=== PATIENT | male | born 1940 | race Caucasian/White ===

== ENCOUNTER 2021-03-06 17:09 | Emergency (ER) | payer OTHER ==
[~2021-03-06] VITALS: Ht 175.3 cm; Wt 104.3 kg
[2021-03-06] MEDS ORDERED: TOPROL XL25 MG PO (18:03)
[2021-03-06] MEDS ORDERED: EFFIENT10 MG PO (18:03)
[2021-03-06] MEDS ORDERED: ROPINIROLE HCL2 M1 PO (18:03)
[2021-03-06] MEDS ORDERED: LIPITOR40 MG PO (18:03)
[2021-03-06] MEDS ORDERED: NOVOLOG100 UNIT/M SUBQ (18:04)
[2021-03-06] MEDS ORDERED: GABAPENTIN100 MG PO (18:04)
[2021-03-06] MEDS ORDERED: LISINOPRIL20 MG PO (18:04)
[2021-03-06] MEDS ORDERED: FLOMAX0.4 MG PO (18:04)
[2021-03-06] MEDS ORDERED: LANTUS SUBQ (18:05)
[2021-03-06] MEDS ORDERED: TRULICITY1.5 MG/0.5 INTRADERM (18:05)
[2021-03-06 19:05] LABS: HEMOGLOBIN 14.5 gm/dL (14.0-18.0); MCH 31.8 pg (26.0-34.0); WBC 20.1 thou/uL (4.0-11.0)
[2021-03-06 19:07] LABS: HEMATOCRIT 42.5 % (42.0-52.0); MCHC 34.1 g/dL (28.0-37.0); MCV 93.2 fL (80.0-100.0); RBC 4.56 mil/uL (4.50-6.00); RDW 13.9 % (10.5-14.5)
[2021-03-06 19:10] LABS: ANION GAP 13 mmol/L (7-16); BUN 16 mg/dL (7-18); CALCIUM 9.1 mg/dL (8.5-10.1); CHLORIDE 103 mmol/L (98-107); CO2 22 mmol/L (21-32); CREATININE 1.1 mg/dL (0.7-1.3); GLUCOSE 150 mg/dL (74-106); POTASSIUM 4.4 mmol/L (3.5-5.1); SODIUM 138 mmol/L (136-145)
[2021-03-06 19:18] LABS: ALBUMIN 3.3 g/dL (3.4-5.0); SGOT 23 U/L (15-37); SGPT 39 U/L (16-63); TOTAL BILIRUBIN 0.6 mg/dL (0.2-1.0); TOTAL PROTEIN 7.1 g/dL (6.4-8.2); TROPONIN-I <0.06 ng/mL (<0.06)
[2021-03-06 19:42] LABS: URINE BILIRUBIN NEGATIVE (Negative); URINE BLOOD NEGATIVE (Negative); URINE CLARITY CLEAR; URINE COLOR YELLOW; URINE GLUCOSE-RANDOM* 1+ (Negative); URINE KETONES NEGATIVE (Negative); URINE LEUKOCYTES-REFLEX NEGATIVE (Negative); URINE NITRITE-REFLEX NEGATIVE (Negative); URINE PROTEIN (DIPSTICK) NEGATIVE (Negative); URINE SPECIFIC GRAVITY 1.025 (1.005-1.035); URINE UROBILINOGEN 0.2 E.U./dl (0.2-1.0)
[2021-03-06 20:06] LABS: ABSOLUTE NEUTROPHILS 13.5 thou/uL (1.4-8.2)
[2021-03-06 20:07] LABS: PLATELET COUNT 247 thou/uL (150-400)
[2021-03-06 20:27] VITALS: BP 137/76
[2021-03-06] MEDS ORDERED: AMOXICILLIN875 MG PORT (20:29)
[2021-03-06] MEDS ORDERED: AMOXICILLIN875 MG PO (20:46)
--- NOTE | 2021-03-07 07:12 | EKG ---
[place] [address] [facility] [place] [address] ELECTROCARDIOGRAM REPORT Name: SHAWN FRANKEL [facility]: [facility] [id number] Admission: 03/06/21 Attend Phys: Discharge: 03/06/21 Date of : 38 Report #: [id number] [facility] ED Test Date: 2021-03-06 Test Time: 18:30:00 Pat Name: SHAWN FRANKEL Department: Room: Gender: Vision Mixer: SAHRA : 1940 Requested By: Bryson Thomason Order Number: [id number] MD: Med Patel Measurements Intervals [place] Rate: 71 P: 47 TN: 186 QRS: 10 QRSD: 94 T: 32 QT: 394 QTc: 429 Interpretive Statements Sinus rhythm Low voltage, precordial leads No previous ECG available for comparison Electronically Signed On 03-07-2021 7:12:22 CDT by Med Patel [email or web address] <ELECTRONICALLY SIGNED> By: Med Patel MD, [facility] 03/07/21 0712 1830 1830 Med Patel MD, FACC /EPI
== END 2021-03-06 20:43 | disposition home or self-care (01) ==
LOC: ER 17:09
PROVIDERS: Physician Assistant
DX: S09.90XA Unspecified injury of head, initial encounter (principal); J32.8 Other chronic sinusitis; Z79.899 Other long term (current) drug therapy; Z79.4 Long term (current) use of insulin; W01.198A Fall on same level from slipping, tripping and stumbling with subsequent striking against other object, initial encounter; Y93.89 Activity, other specified; Y92.89 Other specified places as the place of occurrence of the external cause; Y99.9 Unspecified external cause status

== ENCOUNTER 2021-09-11 11:51 | Emergency (ER) | payer OTHER ==
[~2021-09-11] VITALS: Ht 175.3 cm; Wt 106.1 kg
[~2021-09-11 11:51] MED LIST: AMOXICILLIN875 MG PO; AMOXICILLIN875 MG PORT; EFFIENT10 MG PO; FLOMAX0.4 MG PO; GABAPENTIN100 MG PO; LANTUS SUBQ; LIPITOR40 MG PO; LISINOPRIL20 MG PO; NOVOLOG100 UNIT/M SUBQ; ROPINIROLE HCL2 M1 PO; TOPROL XL25 MG PO; TRULICITY1.5 MG/0.5 INTRADERM
[2021-09-11 11:57] VITALS: BP 137/62
[2021-09-11] MEDS ORDERED: NORCO5 PO (14:31)
== END 2021-09-11 15:15 | disposition home or self-care (01) ==
LOC: ER 11:51
DX: M54.41 Lumbago with sciatica, right side (principal); Z79.4 Long term (current) use of insulin; Z79.899 Other long term (current) drug therapy